=== PATIENT | male | born 1960 | race Caucasian/White ===

== ENCOUNTER → 2020-01-03 11:16 | Outpatient (BNVA) | payer BC, SELFPAY | PROVIDERS: PCP Preventive Medicine Preventive Medicine/Occupational Environmental Medicine; Visit Provider Internal Medicine | DX: M19.90 Unspecified osteoarthritis, unspecified site (principal); Z11.59 Encounter for screening for other viral diseases; Z11.1 Encounter for screening for respiratory tuberculosis; M77.40 Metatarsalgia, unspecified foot; L40.9 Psoriasis, unspecified; M32.9 Systemic lupus erythematosus, unspecified; D86.9 Sarcoidosis, unspecified | CPT/HCPCS: 80053; 82550; 82728; 82955; 84403; 84443; 85025; 85651; 86431; 86480; 86704; 86803; 87340; 99204 ==

== ENCOUNTER 2020-01-14 13:03 | Outpatient (CLI) | payer BC, SELFPAY ==
--- NOTE | 2020-01-14 13:17 | XR_ITS ---
WS: [id number] RIGHT FOOT: 2 VIEW(S) TECHNIQUE: AP and lateral. HISTORY: M25.50 - Pain in unspecified joint COMPARISON: None available. No acute fracture or dislocation. Normal tarsal/metatarsal alignment.. Minimal narrowing of the first metatarsophalangeal joint. No soft tissue edema. Moderate-sized calcaneal spur measures 8 mm. Enthesopathy at the Achilles tendo n. XR/XR foot RT 2V [id number] IMPRESSION: Minimal first metatarsophalangeal joint narrowing.
--- NOTE | 2020-01-14 13:17 | XR_ITS ---
WS: [id number] SACROILIAC JOINTS TECHNIQUE: AP and oblique imaging is submitted. HISTORY: L40.9 - Psoriasis, unspecified COMPARISON: None available. Moderate narrowing of the SI joints. There may be partial fusion across the SI joints. Findings are s ymmetric bilaterally. No soft tissue abnormality. XR/XR sacroiliac jts m 3V [id number] IMPRESSION: Bilateral sacroiliitis with partial fusion across the SI joints. Consider psori atic and reactive arthritic changes.
--- NOTE | 2020-01-14 13:17 | XR_ITS ---
WS: [id number] RIGHT HAND: 2 VIEW(S) TECHNIQUE: PA and lateral. HISTORY: M25.50 - Pain in unspecified joint COMPARISON: 10/10/2016 Diffuse interphalangeal joint space narrowing involving the proximal and distal joints. Hypertrophic osteophytes and soft tissue edema. There is a additional narrowing of the metacarpal phalangeal joint s. Erosive changes are noted especially involving the second and third metacarpal heads. All these fi ndings have progressed since the prior study. There is slight overhanging hooklike osteophytes at the metacarpal heads. Prior avulsion fracture from the ulnar styloid. XR/XR hand RT 2V [id number] IMPRESSION: 1. Interphalangeal joint space narrowing from osteoarthritis most likely. No e rosive changes at the IP joints. Most of productive bone formation. 2. Additional degenerative changes with progression at the metacarpal phalange al joints. Erosive changes and productive changes. Consider hemochromatosis and CPPD.
--- NOTE | 2020-01-14 13:17 | XR_ITS ---
WS: [id number] LEFT KNEE: 3 VIEW(S) TECHNIQUE: AP, oblique(s) and lateral. HISTORY: M25.50 - Pain in unspecified joint COMPARISON: None available. No fracture or dislocation. Moderate tricompartment osteoarthritis. Joint space narrowing and marginal osteophytes. No joint effusion. No soft tissue abnormality. XR/XR knee LT 3V* [id number] IMPRESSION: Moderate tricompartment osteoarthritis.
--- NOTE | 2020-01-14 13:17 | XR_ITS ---
WS: [id number] LEFT HAND: 2 VIEW(S) TECHNIQUE: PA and lateral. HISTORY: M25.50 - Pain in unspecified joint COMPARISON: 10/10/2016 Continued progression productive osteophytes and joint space narrowing at the IP joints. There is als o soft tissue nodularity at the IP joints. No erosions or productive changes. Additional narrowing of the metacarpal phalangeal joints, most significant at the second and third rodolfo int spaces. There are a few erosions and slight overhanging osteophytes. XR/XR hand LT 2V [id number] IMPRESSION: 1. Above changes may be due to pulmonary arthritis which has progressed since the prior study. 2. Osteoarthritis at the IP joints. No productive changes to suggest psoriatic arthritis. 3. Changes at the metacarpal phalangeal joints may be due to hemachromatosis o r CPPD.
--- NOTE | 2020-01-14 13:17 | XR_ITS ---
WS: [id number] LATERAL CERVICAL SPINE: 3 view. Lateral radiographs are performed in upright neutral, flexion and extension to the patient's toleranc e. HISTORY: M25.50 - Pain in unspecified joint COMPARISON: None available. Very slight anterolisthesis of C3 on less than 2 mm. Anterior bridging osteophyte between C4 and C5. There are small hypertrophic osteophytes at C3 also. No fractures. During flexion mild anterior insta bility of C3 up to 3 mm. XR/XR cervical spine fl/ex [id number] IMPRESSION: 1. Mild C3 instability during flexion. 2. Small anterior hypertrophic bridging osteophytes.
--- NOTE | 2020-01-14 13:17 | XR_ITS ---
WS: [id number] RIGHT KNEE: 3 VIEW(S) TECHNIQUE: AP, oblique(s) and lateral. HISTORY: M25.50 - Pain in unspecified joint COMPARISON: None available. No fracture or dislocation. Moderate to severe narrowing of the medial compartment. Mild narrowing of the lateral patellofemoral compartments. Hypertrophic osteophytes along the joint lines. No fracture. No joint effusion. No soft tissue abnormality. XR/XR knee RT 3V* [id number] IMPRESSION: 1. Moderate to severe medial compartment osteoarthritis. 2. Although osteoarthritis lateral and patellofemoral joint spaces.
--- NOTE | 2020-01-14 13:17 | XR_ITS ---
WS: [id number] LEFT FOOT: 2 VIEW(S) TECHNIQUE: AP and lateral. HISTORY: M25.50 - Pain in unspecified joint COMPARISON: None available. No acute fracture or dislocation. Very mild narrowing of the first metatarsophalangeal joint. Normal tarsal/metatarsal alignment. No soft tissue abnormality or bone destruction. Small calcaneal spur. XR/XR foot LT 2V [id number] IMPRESSION: Minimal first MTP joint arthritis. Small calcaneal spur.
== END 2020-01-14 13:04 | disposition home or self-care (01) ==
LOC: RADWPI 13:07
PROVIDERS: PCP Preventive Medicine Preventive Medicine/Occupational Environmental Medicine; Visit Provider Internal Medicine
DX: M79.671 Pain in right foot (principal); M79.642 Pain in left hand; M79.641 Pain in right hand; L40.9 Psoriasis, unspecified; M53.2X2 Spinal instabilities, cervical region; M25.78 Osteophyte, vertebrae; M46.1 Sacroiliitis, not elsewhere classified; M17.0 Bilateral primary osteoarthritis of knee; M19.042 Primary osteoarthritis, left hand; M19.041 Primary osteoarthritis, right hand; M77.32 Calcaneal spur, left foot
CPT/HCPCS: 72040; 72202; 73120; 73562; 73620

== ENCOUNTER → 2020-01-29 10:46 | Outpatient (BNVA) | payer BC, SELFPAY | PROVIDERS: PCP Preventive Medicine Preventive Medicine/Occupational Environmental Medicine; Visit Provider Internal Medicine Rheumatology | DX: M19.90 Unspecified osteoarthritis, unspecified site (principal); R79.89 Other specified abnormal findings of blood chemistry; Z79.899 Other long term (current) drug therapy | CPT/HCPCS: 36415 ==

== ENCOUNTER 2020-01-29 11:18 | Outpatient (CLI) | payer BC, SELFPAY ==
--- NOTE | 2020-01-29 11:26 | XR_ITS ---
WS: [id number] Lumbar spine, 3 views, 01/29/2020 Clinical Data: M53.3 - Sacrococcygeal disorders, not elsewhere classified Comparison: None. Findings: No compression fractures or subluxation is seen. No disc space narrowing is seen. The transverse proc esses and SI joints are normal. There is osteoarthritic spurring of all the lumbar vertebral bodies. There are surgical clips through out the abdomen. There is a large amount of fecal material in the colon. XR/XR lumbar spine 2-3V* [id number] Impression: Osteoarthritis of all the lumbar vertebral bodies.
== END 2020-01-29 11:19 | disposition home or self-care (01) ==
LOC: RADWPI 11:21
PROVIDERS: PCP Preventive Medicine Preventive Medicine/Occupational Environmental Medicine; Visit Provider Internal Medicine
DX: M53.3 Sacrococcygeal disorders, not elsewhere classified (principal); M47.816 Spondylosis without myelopathy or radiculopathy, lumbar region
CPT/HCPCS: 72100; 82306; 82310; 82728; 83540; 83735; 83970; 84100; 86812

== ENCOUNTER → 2020-03-05 12:40 | Outpatient (BNVA) | payer BC, SELFPAY | PROVIDERS: PCP Preventive Medicine Preventive Medicine/Occupational Environmental Medicine; Referring Provider Internal Medicine; Visit Provider Anesthesiology | DX: G89.29 Other chronic pain (principal); M53.2X2 Spinal instabilities, cervical region; M54.9 Dorsalgia, unspecified; Z79.1 Long term (current) use of non-steroidal anti-inflammatories (NSAID); Z79.891 Long term (current) use of opiate analgesic | CPT/HCPCS: 99204; 99205 ==

== ENCOUNTER 2020-03-24 12:05 | Outpatient (CLI) | payer BC, SELFPAY ==
--- NOTE | 2020-03-24 16:00 | MR_ITS ---
WS: [id number] MRI CERVICAL SPINE NONCONTRAST TECHNIQUE: Sagittal T1, T2 and STIR imaging. Axial T2, gradient, and fiesta imaging. CLINICAL INFORMATION: M53.2X2 - Spinal instabilities, cervical region COMPARISON: None. FINDINGS: Straightening of the normal cervical lordosis. Mild disc bulging worse at C3-C4 and C4-C5. Cord signa l is normal. C2-C3: Normal. C3-C4: Mild disc bulging and osteophytic ridging. Small central protrusion with mild central canal st enosis. Slight contact of the cervical cord. Mild bilateral bony foraminal narrowing. Mild facet arth ropathy. C4-C5: Disc osteophyte complex eccentric to the left. Mild central canal stenosis. Severe left bony f oraminal narrowing. Advanced left facet arthropathy with mild facet edema. C5-C6: Tiny central disc protrusion. Slight effacement of ventral thecal sac. Mild left and no signif icant right foraminal narrowing. Mild facet arthropathy. C6-C7: Osteophytic ridging. Moderate left and no significant right foraminal narrowing. Mild facet ar thropathy. Spinal canal is patent. C7-T1: Mild to moderate left and no significant right foraminal narrowing. Spinal canal is patent. Visualized brain stem structures: Normal. Prevertebral soft tissues: Normal. MR/MR cervical spin wo con* [id number] IMPRESSION: 1. Straightening of the normal cervical lordosis. Cord signal is normal. 2. Mild central canal stenosis C3-C4 and C4-C5 with mild central disc osteophy te protrusions. 3. Severe bony foraminal narrowing left C4-C5 with advanced left facet arthrop athy with a small amount of edema. 4. Mild to moderate bony foraminal narrowing left C5-C6, left C6-C7, and left C7-T1.
== END 2020-03-24 12:06 | disposition home or self-care (01) ==
LOC: RADSHAW 12:07
PROVIDERS: PCP Preventive Medicine Preventive Medicine/Occupational Environmental Medicine; Visit Provider Orthopaedic Surgery
DX: M53.2X2 Spinal instabilities, cervical region (principal); M47.812 Spondylosis without myelopathy or radiculopathy, cervical region; R60.0 Localized edema; M48.02 Spinal stenosis, cervical region
CPT/HCPCS: 72141

== ENCOUNTER → 2020-04-14 09:58 | Outpatient (BNVA) | payer BC, SELFPAY | PROVIDERS: PCP Preventive Medicine Preventive Medicine/Occupational Environmental Medicine; Visit Provider Orthopaedic Surgery | DX: G89.29 Other chronic pain (principal); M54.2 Cervicalgia; M54.5 Low back pain; M19.90 Unspecified osteoarthritis, unspecified site; M25.50 Pain in unspecified joint; M53.3 Sacrococcygeal disorders, not elsewhere classified; M53.2X2 Spinal instabilities, cervical region; Z79.891 Long term (current) use of opiate analgesic | CPT/HCPCS: 72050; 99213 ==

== ENCOUNTER → 2022-12-06 11:15 | Outpatient (BNVA) | payer BC, SELFPAY | PROVIDERS: PCP Preventive Medicine Preventive Medicine/Occupational Environmental Medicine; Visit Provider Internal Medicine Rheumatology | DX: Z79.899 Other long term (current) drug therapy (principal); M19.90 Unspecified osteoarthritis, unspecified site; Z11.59 Encounter for screening for other viral diseases; M45.6 Ankylosing spondylitis lumbar region; Z11.1 Encounter for screening for respiratory tuberculosis; M19.041 Primary osteoarthritis, right hand; M19.071 Primary osteoarthritis, right ankle and foot | CPT/HCPCS: 72100; 73130; 73630; 80076; 82306; 82565; 83520; 85025; 85651; 86140; 86200; 86431; 86480; 86704; 86803; 86812; 87340 ==

== ENCOUNTER → 2023-04-11 11:18 | Outpatient (BNVA) | payer BC, SELFPAY | PROVIDERS: PCP Family Medicine; Referring Provider Family Medicine; Visit Provider Student in an Organized Health Care Education/Training Program | DX: M17.0 Bilateral primary osteoarthritis of knee | CPT/HCPCS: 73560; 73565 ==

== ENCOUNTER → 2023-04-27 12:10 | Outpatient (BNVA) | payer BC, SELFPAY | PROVIDERS: PCP Family Medicine; Referring Provider Internal Medicine Cardiovascular Disease; Visit Provider Internal Medicine Cardiovascular Disease | DX: R06.02 Shortness of breath (principal); I49.9 Cardiac arrhythmia, unspecified; R53.83 Other fatigue | CPT/HCPCS: 36415; 80048; 83880 ==

== ENCOUNTER 2023-05-05 09:28 | Outpatient (CLI) | payer BC, SELFPAY ==
--- NOTE | 2023-05-05 | ECG_ITS ---
[facility] Test Date: 2023-05-05 Pat Name: Fredy Valdez Department: Room: Gender: Male Spot Sprayer: Stephany VelazcoLori : 1960 Requested By: Nasir Mckeon Order Number: [id number] Gwendolyn MD: Nasir Mckeon M.D. Interpretive Statements NAME OF STUDY: EXERCISE SESTAMIBI STRESS TEST INDICATION: Chest tightness, Fatigue, KOENIG, Pre stress patient rhythm intermittent Quadrigemeny/Bigeminy, these were non-perfusing PVCs as assessed with comparison palpation of radial pulse PROCEDURE: The baseline electrocardiogram showed normal sinus rhythm with frequent PVCs in the form of bigeminy. At the baseline, the patient's blood pressure was 141/95 mm Hg with a heart rate of 86. The patient exercised for 4 minutes and 8 seconds on a standard Wood protocol. Patient attained a maximum heart rate of 141 beats per minute(88% of the maximum predicted heart rate) with a blood pressure at the peak exercise of 200/87 mm Hg. The EKG at the peak exercise revealed less frequent PVCs. During exercise, patient was found to have episodes of ventricular couplets and triplets. Sestamibi was injected 1 minute prior to the peak exercise During the recovery phase, there were no new changes. The EKG returned to the baseline PVCs in the form of bigeminy Blood pressure at the end of the recovery phase was 165/93 mm Hg with a heart rate of 80 beats per minute. CONCLUSION: 1. No significant ischemic EKG changes with the treadmill exercise 2. Slight worsening of the baseline ventricular arrhythmia during the exercise 3. Impaired exercise tolerance, attained a maximum of 7.0 METs 4. Sestamibi/Sestamibi perfusion results pending; see separate report. Electronically Signed On 05-07-2023 20:50:35 CDT by Nasir Mckeon M.D. [email or web address]
[2023-05-05 09:51] VITALS: BMI 33.2
--- NOTE | 2023-05-05 09:55 | NMCV_ITS ---
NM ben perf SPECT r/s* [id number] Fredy Valdez Age: 62 Gender: M : 1960 Exam Date: 05/05/2023 09:55 Ordering Phys: Nasir Mckeon MD ([email or web address]) Technologist: RAMY Alicea Exam Location: [facility] Indications: CORONARY ANGIOPLASTY STATUS STRESS TEST [facility] IMAGE PROTOCOL Rest/Stress 1 Exercise Day Radiopharmaceutical Dose (mCi) Administration Site Administered by Rest: Tc-99m 10.9 IV RAMY [place] Sestamibi Stress:Tc-99m 33.0 IV RAMY [place] Sestamialiyah Rest: 05-May-2023 60 Discovery 630 Stress: 05-May-2023 15 Discovery 630 Radiopharmaceutical was injected at 85 % maximum heart rate. Images obtained in supine and prone position. SPECT RESULTS Technical Quality: Excellent Raw Data Analysis: Normal Image Corrections: No attenuation or motion correction applied Summed Stress Score: 6 Summed Rest Score: 5 Summed Difference Score: 3 PERFUSION FINDINGS Small area of minimal to moderately decreased tracer uptake was noted involving all the apical segments excluding the apical inferior with some subtle areas of reversibility FUNCTIONAL RESULTS (calculated via Gated SPECT) Stress Image LV EF (%): 42 Stress EDV (mL):159 TID: 1.12 Stress ESV (mL):92 FUNCTIONAL FINDINGS: Segmental wall motion analysis revealed diffuse hypokinesia of left ventricle IMPRESSIONS 1. Myocardial perfusion imaging revealing small area of minimal to moderately decreased tracer uptake involving the apical segments with some subtle areas of reversibility suggesting myocardial scarring in the distribution of the distal segments of the left anterior descending artery and circumflex artery with subtle areas of lyndsey-infarction ischemia. 2. Diminished LV ejection fraction of 42%. 3. Segmental wall motion analysis revealed diffuse hypokinesia of the left ventricle. 4. Mildly dilated LV cavity with end-systolic volume of 92 mL. No similar previous studies are available for comparison Dr Nasir Mckeon MD FAC (Electronically Signed) Final Date: 05 May 2023 15:57 S
[2023-05-05 11:40] VITALS: BP 165/93; PULSE 86
--- NOTE | 2023-05-05 11:43 | PC.NURSE ---
Stress test Pre stress test pt rhythm was intermittent between Quadrigeminy and Bigeminy. PVC's were non-perfusing upon assessment of radial pulse. Pt met target HR on exercise mibi. Complained of shortness of breath and mild chest tightness. Chest tightness resolved during recovery phase.
--- NOTE | 2023-05-05 14:30 | USCV_ITS ---
José Miguel Fredy Age: 62 Gender: M : 1960 Exam Date: 05/05/2023 09:59 Ordering Phys: Nasir Mckeon MD ([email or web address]) Technologist: [place] [facility] [place]ication: VENTRICULAR ARRHYTHMIA BP: 138 / 90 HR: 54 Rhythm: Sinus Technical Quality: Adequate MEASUREMENTS (Male / Female) Normal Values 2D ECHO LV Diastolic Diameter PLAX 5.8 cm 4.2 - 5.9 / 3.9 - 5.3 cm IVS Diastolic Thickness 1.1 cm 0.6 - 1.0 / 0.6 - 0.9 cm IVS Systolic Thickness 1.3 cm LVPW Diastolic Thickness 1.7 cm 0.6 - 1.0 / 0.6 - 0.9 cm LVPW Systolic Thickness 2.5 cm LVOT Diameter 2.0 cm LV Ejection Fraction 2D Teich 44.3 % LV Ejection Fraction MOD 2C 44.8 % LV Ejection Fraction 2C AL 46.1 % LA Diameter 3.8 cm RA Systolic Volume 4C AL 41.7 ml RA Systolic Volume 4C MOD 40.6 ml Aorta at Sinotubular Diameter 2.7 cm IVC Diameter 1.7 cm M-MODE LA Ao Ratio MM 1.2 AV Cusp Separation MM 1.8 cm DOPPLER AV Peak Velocity 111.0 cm/s LVOT Peak Velocity 82.0 cm/s AV Area Cont Eq vti 2.8 cm squared AV Area Cont Eq pk 2.3 cm squared MV Peak Velocity 104.0 cm/s MV Area PHT 3.4 cm squared Mitral E to A Ratio 0.9 TR Peak Velocity 198.0 cm/s TR Peak Gradient 15.7 mmHg TR Mean Velocity 156.0 cm/s TR Mean Gradient 10.3 mmHg TR Velocity Time Integral 67.9 cm TV Peak E Velocity 54.0 cm/s Right Atrial Pressure 3.0 mmHg Pulmonary Artery Systolic Pressu 18.7 mmHg PV Peak Velocity 91.0 cm/s FINDINGS Left Ventricle Mild diffuse hypokinesia of the left ventricule with ejection fraction of 44%. Mildly dilated LV cavity. Right Ventricle Normal right ventricular size and systolic function. Right Atrium Right atrium, upper limit of normal size Left Atrium Normal left atrial size. Mitral Valve Mild mitral valve regurgitation. Aortic Valve No gross abnormalities noted Tricuspid Valve No gross abnormalities noted Pulmonic Valve Mild pulmonary valve regurgitation. Pericardium No pericardial effusion. Aorta Normal aortic annulus size. IVC Normal inferior vena cava. CONCLUSIONS Mild diffuse hypokinesia of the left ventricule with ejection fraction of 44%. Mildly dilated LV cavity. Right atrium, upper limit of normal size. Mild mitral valve regurgitation. Mild pulmonary valve regurgitation. There is no pericardial effusion. There are no intracardiac masses. No similar previous studies are available for comparison Dr Nasir Mckeon MD [facility] (Electronically Signed) Final Date: 10 May 2023 17:32 S
== END 2023-05-05 09:29 | disposition home or self-care (01) ==
PROVIDERS: PCP Family Medicine; Visit Provider Internal Medicine Cardiovascular Disease
DX: R06.09 Other forms of dyspnea (principal); Z98.61 Coronary angioplasty status
CPT/HCPCS: 36415; 78452; 93017; 93306; A9500

== ENCOUNTER 2023-05-23 09:25 | Outpatient (CLI) | payer BC, SELFPAY ==
[2023-05-23 10:47] LABS: Basophils # 0.1 10^3/uL (0.0-0.1); Eosinophils # 0.5 10^3/uL (0.0-0.8); Eosinophils % 6.4 %; Hematocrit 45.6 % (37-53); Lymphocytes # 2.4 10^3/uL (0.8-4.8); Lymphocytes % 28.8 %; Mean Corpuscular HGB Conc 32.5 g/dL (30-55); Mean Corpuscular Hemoglobin 30.8 pg (27-33); Mean Corpuscular Volume 94.8 fl (82-101); Mean Platelet Volume 10.7 fL (7.4-10.4); Monocytes % 12.3 %; Neutrophils # 4.17 10^3/uL (1.8-7.7); Neutrophils % 50.8 %; Nucleated Red Blood Cells % 0 %; Platelet Count 264 10^3/cmm (157-399); Red Blood Count 4.81 10^6/uL (3.85-5.65); Red Cell Distribution Width 12.3 % (12.1-15.1); White Blood Count 8.22 10^3/uL (3.29-11.43)
[2023-05-23 11:03] LABS: INR 0.98 (0.8-1.2)
[2023-05-23 11:20] LABS: Anion Gap 12.4 (5-19); Blood Urea Nitrogen 21 mg/dL (8-23); Calcium 9.1 mg/dL (8.5-10.5); Carbon Dioxide 23 mmol/L (22-29); Chloride 108 mmol/L (98-107); Glucose 112 mg/dL (65-115); NT Pro B Type Natriuretic Pept 290 pg/mL (0-125); Osmolality Calculated 292 mOsm/kg (285-295); Potassium 4.4 mmol/L (3.5-5.1); Sodium 139 mmol/L (136-145)
== END 2023-05-23 09:26 | disposition home or self-care (01) ==
PROVIDERS: PCP Family Medicine; Visit Provider Internal Medicine Cardiovascular Disease
DX: R06.02 Shortness of breath (principal); I48.91 Unspecified atrial fibrillation; I25.118 Atherosclerotic heart disease of native coronary artery with other forms of angina pectoris; Z79.01 Long term (current) use of anticoagulants
CPT/HCPCS: 36415; 80048; 83880; 85025; 85610; 86850; 86900

== ENCOUNTER 2023-05-25 05:44 | Outpatient (CLI) | payer BC, SELFPAY ==
[2023-05-25] VITALS (19 sets, daily range): BP systolic 107–150; BP diastolic 74–99; PULSE 51–74; RESP 10–22; TEMP 36.6–36.8; O2SAT 94–97; BMI 34.2
--- NOTE | 2023-05-25 06:00 | XACV_ITS ---
Exam Room: 2 Ht: 175 cm Wt: 105 kg BSA: 2.30 m2 Gender: Male : 1960 Any Known Allergies: Sulfa Exam Priority: Routine Procedure(s): Procedure Description: Diagnostic procedure Procedure Description: PCI procedure Procedure Description: Left Heart Catheterization Procedure Description: Left ventriculography Procedure Description: Coronary IVUS Procedure Description: Drug Eluting Coronary Stent Procedure Description: PTCA Procedure Description: Miscellaneous Procedure Description: ACT Procedure Description: Coronary Angiography Procedure Description: Pressure Wire Mike DRUMMOND; Diagnostic Cath Status: Elective Diagnostic Findings * The left main is a medium caliber short vessel with no significant stenotic lesions. * The left anterior descending artery is a medium caliber vessel which appears to wraparound the LV apex minimally. The proximal and mid LAD was found to have moderate diffuse disease. The proximal segment was found to have a bumpy lumpy lesions of around 50 to 60%. The mid LAD was found to have bumpy lumpy lesions of 30 to 40%. * The intermedius artery is a high obtuse marginal branch of medium to large caliber. The proximal segment of the artery was found to have around 50 to 60% segmental lesion. The distal artery was found to have minimal intimal irregularities. * The left circumflex artery was found to have * minimal disease proximally. * The second obtuse marginal branch was * found to be a small to medium caliber vessel with * moderate to severe diffuse disease proximally. There was a napkin ring type lesion of around 85% in the segment. No other significant stenotic lesions. * The right coronary artery is a medium caliber codominant vessel which was found to have mild diffuse disease of 20 to 30% in the midsegment. No other significant external lesions. PCI Status: Elective PCI Indication: Other Interventional Findings * Second Obtuse Marginal Branch Segment: 70% stenosis treated with a AB TREK 2.25X12 RX BALLOON, and MDT R DONOVAN 2.25X22 MICHAEL. 0% residual stenosis, REUBEN: 3 flow. * Procedure detail: We engaged left main artery with XB 3.5 guide catheter. IV heparin was administered to maintain anticoagulation. After normalization, IFR wire was advanced into OM1, IFR value of 0.96 was obtained that was nonsignificant. We then proceeded with IFR of proximal LAD. Spot IFR of 0.90 was obtained however on pullback it was significant at 0.89 with step up at proximal LAD. Given significant iFR value on pull back and LV dysfunction, we proceeded with PCI of proximal LAD and placed a 4.0 x 30 mm resolute Douglas drug-eluting stent. IVUS was performed and we postdilated stent with 4.0 x 12 mm NC balloon at high pressure. We then proceeded with PCI of OM 2. Run-through wire was used to cross the stenosis. 2.25 x 12 mm semicompliant balloon was used to predilate the stenosis. We then placed 2.25 x 22 mm resolute Donovan drug-eluting stent. At this time final angiogram was performed that showed excellent stent expansion, no residual stenosis and REUBEN-3 flow. Guide guidewire and guide catheter were removed. Patient left the Manager Gyn in a stable condition.. * Proximal Left Anterior Descendin% stenosis treated with a Resolute Donovan 4.0x30, and MDT TOÑITO EUPHORA RX 4.64I26DM BALLOON. 0% residual stenosis, REUBEN: 3 flow. Conclusions 1. 62-year-old white male, presenting with complaints of chest pains/shortness of breath and palpitation. He was found to have frequent ventricular arrhythmias on the monitor. His myocardial perfusion imaging revealed a small area of reversible defect in distribution of the left anterior descending artery/circumflex artery. His LV ejection fraction was around 40% by echocardiogram. In view of the patient's risk factors and abnormal objective findings, in order to further evaluate the coronary status, a cardiac catheterization was recommended. Patient underwent left heart catheterization with left and right coronary angiogram and LV angiogram today. The findings are as follows. 2. Short left main with no significant lesions. Moderate diffuse irregular bumpy lumpy lesions in the proximal LAD. Moderate disease in the proximal intermedius artery. High-grade segmental stenosis in the second obtuse marginal branch. Mild disease in the other vessels. LV ejection fraction 35 to 40%. LVEDP of 30 mmHg. 3. I reviewed and discussed the cardiac catheterization data with the Dr. Yadav. 4. Based on the 5. abovefindings, it was thought to be appropriate to consider PCI of the second obtuse marginal lesions and do an IFR in the proximal LAD and intermedius artery lesions. Dr. Yadav concurred with this plan and took over further management this patient at this point. 6. The IFR in the proximal area was found to be Significant. Patient underwent PCI of the proximal LAD lesion and the second OM lesions. Further details, please refer to the report by Dr. Yadav. 7. Severe proximal LAD stenosis confirmed with iFR on pull back with significant step up in the proximal vessel. Successful revascularization with 1 stent. 8. Severe OM 2 stenosis s/p successful revascularization with 1 stent. 9. Proximal Left Anterior Descending was treated with a Stent, and Balloon. 10. First Obtuse Marginal Branch Segment was treated with a Balloon, and Drug Eluting Stent. Recommendations * Dual antiplatelet therapy with aspirin and Plavix for atleast 1 year. * High intensity statin therapy. * Outpatient cardiology follow up in 2 weeks. Interventional RX Recommendation: PCI w/o planned CABG Diagnostic RX Recommendation: PCI w/o planned CABG Anticoagulation: Heparin Ventriculography Ejection Fraction: 36.0 % LV EDP: 30 mmHg Left Ventriculography Findings: * LV gram was performed the SAN position. There is mild to moderate diffuse hypokinesia of the left ventricle. Ejection fraction was around 35 to 40%. The LVEDP was 30 mmHg. There was no significant mitral valve prolapse or mitral regurgitation. Pressures Phase:Rest AO : 102 / 70 ( 82 ) @ 8:26:00 AM 113 / 78 ( 94 ) @ 8:29:00 AM 164 / 85 ( 116 ) @ 8:38:00 AM 156 / 69 ( 108 ) @ 8:39:00 AM 146 / 86 ( 110 ) @ 8:49:00 AM 146 / 99 ( 120 ) @ 9:11:00 AM 141 / 102 ( 121 ) @ 9:13:00 AM 163 / 104 ( 130 ) @ 9:15:00 AM 159 / 106 ( 129 ) @ 9:20:00 AM LV : 152 / 21 / 30 @ 8:37:00 AM 150 / 23 / 35 @ 8:38:00 AM 143 / 14 / 29 @ 8:38:00 AM Valves Phase:DefaultPhase AV : 0.0 @ 8:42:26 AM 0.0 @ 8:42:26 AM AV Mean Gradient: 0.0 @ 8:42:26 AM 0.0 @ 8:42:26 AM Clinical Evaluation EBL: 5mL-10mL Procedural Details Pre-Procedure Time Out. Identified patient by full name and date of as verbalized by the patient/guarantor. Does the consent match the physician's order: Yes. Accurate & Complete Informed Consent: Yes. Inpatient/Outpatient History & Physical on Chart: Yes. If H&P is completed, is and addenduem needed: No; If yes, is the addendum complete: N/A. Visualize and Verify Site with Patient/Guarantor: N/A. Relevant Radiology Images available: Yes. Pre-op teaching completed and patient verbalized understanding. The risks, benefits, and alternatives of sedation and/or procedure were discussed by physician. The patient agrees to continue. Procedure started. Current Diagnosis : Chest Pain. [facility] Clinical Fraility Score: 3: Managing Well. Manager G[facility] Indications: Cardiomyopathy/ventricular arrythmia. Chest Pain Symptom Assessment: Typical Angina Symptoms. Cardiovascular Instability: No. Correct patient, site and procedure confirmed by cath team. PERRLA. Strong, equal hand drums teacher bilaterally. Lungs clear x 5 lobes. IV Site on Arrival: 20 gauge in the left hand. IV Fluids: 0.9% NaCl at KVO. 0 mL infused prior to blood and plasma laboratory assistant. Pre Procedural Pulses: bilateral dorsalis pedis was 3+. Pre Procedural Pulses: bilateral posterior tibial was 3+. Pre Procedural Pulses: bilateral radial was 3+. Oxygen started at 2liters/min via nasal canula. right groin was prepped with chloroprep then draped in the usual sterile fashion. Physician notified. Baseline sample Acquired. HR: 54 BPM. Patient's family in CPRU. Dr. Mckeon will update at the completion of the procedure. Equipment: 6F - Radial. Cardiac Cath Pack. ACIST Manifold Kit Model BT 2000. Heparinized Saline (2 units/mL), 1000 mL bag. Physician arrived. Physician scrubbed in. Immediate Pre-Procedure Time Out. Correct Patient: Yes; Correct Procedure: Yes; Correct Site: Yes; Correct Patient Position: Yes; Correct Supplies: Yes; Dried Flammable Prep: Yes; Blood Products Available: N/A;. Lidocaine 1% infiltrated to the right radial. Arterial access obtained. A 5 iraqi Seferino catheter in over wire. Multiple views taken of left coronary artery. Catheter redirected to the RCA. Multiple views taken of right coronary artery. Catheter removed over the exchange wire. Dr. Yadav arrived to review films. A 5 iraqi Angled Pig catheter in over wire. EDP Sample taken: LV 152/21,30; HR: 68 BPM; SpO2: 99%. LV gram performed in SAN @ 10 mL/second for a total of 30 mL. EDP Sample taken: LV 150/23,35; HR: 65 BPM; SpO2: 98%. Pullback taken: LV 143/14,29; AO 164/85(116); Mean: 0mmHg, Peak to Peak: 0mmHg, SEP: 4sec/min; HR: 65 BPM; SpO2: 98%. Catheter removed over the exchange wire. Dr. Mckeon scrubbed out. Side port of sheath attached to Normal Saline flush at KVO to maintain patency. Dr. Yadav scrubbed in. 6 iraqi XB 3 guide catheter was inserted over the wire. IFR guidewire was advanced through the guide catheter to lesion in the OM. IFR Results: 0.96. Wire redirected to the LAD. IFR Results: 0.90. ACT drawn. Results 390 seconds. Therapeutic limits - pre-heparin administration 90-150 seconds and monitoring heparin during a vascular procedure >250 seconds. Stent inserted to lesion in the prox LAD. Inflation Number : 1 A Resolute Donovan 4.0x30 -Lot Number# _[id number] EXP: 12/30/2023 was prepped and advanced across the Prox LAD. The stent was deployed at 12 CARO for 0:30 seconds. Stent balloon out over wire. IVUS catheter inserted OTW and advanced to the proximal LAD. IVUS measurements obtained. IVUS catheter removed OTW. Inflation number : 2 A MDT NC EUPHORA RX [id number] BALLOON was prepped and advanced across the Prox LAD , then inflated to 14 CARO for 0:11 seconds. Inflation number: 4 The MDT NC EUPHORA RX 4.90Y89QL BALLOON was reinflated across the Prox LAD, to 12 CARO for 0:06 seconds. Inflation number: 5 The MDT NC EUPHORA RX 4.57C28LL BALLOON was reinflated across the Prox LAD, to 16 CARO for 0:12 seconds. Balloon out. Runthrough guidewire was advanced through the guide catheter to lesion in the OM. IFR wire out. Inflation number : 1 A AB TREK 2.25X12 RX BALLOON was prepped and advanced across the 1st Ob Glenna , then inflated to 8 CARO for 0:11 seconds. Inflation number: 2 The AB TREK 2.25X12 RX BALLOON was reinflated across the 1st Ob Glenna, to 8 CARO for 0:09 seconds. Balloon out. Inflation Number : 3 A MDT R DONOVAN 2.25X22 MICHAEL -Lot Number# _[id number] EXP: 12/25/2023 was prepped and advanced across the 1st Ob Glenna. The stent was deployed at 12 CARO for 0:21 seconds. Stent balloon out over wire. Wire out. Results checked. ACT drawn. Results 363 seconds. Therapeutic limits - pre-heparin administration 90-150 seconds and monitoring heparin during a vascular procedure >250 seconds. Guide catheter out. A TR Band was successful obtaining hemostatsis at the Right Radial artery insertion site. Post Procedure: Pulses reassessed and unchanged. PERRLA. Strong, equal hand drums teacher bilaterally. No VTE prophylaxis required. Medication's Wasted: Lidocaine 1% = 17 mL. Medication's Wasted: Other = Fentanyl 75 mcg. Medication's Wasted: Nitro = 49.8 mg. Total IV fluids: 330 mL. Vital chart was stopped. Complications: None. Estimated blood loss: 5mL-10mL. Responsiveness - Normal response to verbal stimuli; alert and oriented, PERRLA. Airway - Unaffected, no intervention required; spontaneous ventilation. Circulation: W/N/L, pulses unchanged. Nausea/Vomiting: No. Procedure completed. Patient transferred by wheelchair to CPRU. Access Site Site: Right Radial artery Sheath Size: 6 Fr Hemostasis Method: TR Band Hemostasis Success: Successful Procedure Medications Start: 7:12 AM Stop: 7:12 AM Medication: Zofran (ondansetron) Amount: 4 mg Route: I.V. Start: 7:15 AM Stop: 7:15 AM Medication: Versed 1 mg and Fentanyl 25 mcg Amount: 1 Route: I.V. Start: 7:22 AM Stop: 7:22 AM Medication: 0.9% Saline Amount: 250 ml Route: I.V. bolus Start: 7:22 AM Stop: 7:22 AM Medication: Nitrogylcerin Amount: 200 mcg Route: I.A. Start: 7:22 AM Stop: 7:22 AM Medication: Verapamil Amount: 5 mg Route: I.A. Start: 7:26 AM Stop: 7:26 AM Medication: Heparin Amount: 5000 units Route: I.V. Start: 7:35 AM Stop: 7:35 AM Medication: Fentanyl Amount: 25 mcg Route: I.V. Start: 7:35 AM Stop: 7:35 AM Medication: Versed Amount: 1 mg Route: I.V. Start: 7:42 AM Stop: 7:42 AM Medication: Fentanyl Amount: 25 mcg Route: I.V. Start: 7:50 AM Stop: 7:50 AM Medication: Heparin Amount: 5000 units Route: I.V. Start: 7:51 AM Stop: 7:51 AM Medication: Versed Amount: 1 mg Route: I.V. Start: 8:14 AM Stop: 8:14 AM Medication: Fentanyl Amount: 25 mcg Route: I.V. Start: 8:15 AM Stop: 8:15 AM Medication: Versed Amount: 1 mg Route: I.V. Start: 8:25 AM Stop: 8:25 AM Medication: Fentanyl Amount: 25 mcg Route: I.V. I, the attending physician, have reviewed and verified all procedure medications. Yes, all medications given per verbal order History/Risk Factors Hypertension: No Dyslipidemia: No Peripheral Arterial Disease (PAD): No Myocardial Infarction (WA): No Obesity: No Renal Disease: No Tobacco Use: Never Prior Interventions PCI: No CABG: No Valve Surgery: No Report Signatures Interventional Workflow Finalized by Obdulio Yadav MD on 05/28/2023 09:41 PM Diagnostic Workflow Finalized by Dr Nasir Mckeon MD [facility] on 05/25/2023 10:12 PM
[2023-05-25] MEDS: diphenhydrAMINE 50 mg Capsule PO (06:12)
--- NOTE | 2023-05-25 07:08 | W.PM.OPSUD ---
Surgery/Procedure H&P Update DATE OF PROCEDURE: May 25, 2023 DATE H&P PERFORMED: 04/27/23 H&P UPDATE INFORMATION: I have reviewed H&P completed within last 30 days, I have examined patient prior to procedure and No changes to prior documentation PREOP DIAGNOSIS: ASHD/ cardiomyopathy PRIMARY INDICATION FOR PROCEDURE: Ventricular arrhythmia/cardiomyopathy/abnormal stress test PLANNED PROCEDURE: Operation Date: 05/25/23 07:00 Proposed Procedures p Cardiac Catheterization(Left) - Nasir Mckeon MD PATIENT REASSESSED PRIOR TO SEDATION, WITH NO CHANGE NOTED: Yes PHYSICAL EXAM: alert, oriented x 3, clear to auscultation bilaterally and regular rate & rhythm AIRWAY EVAL/ANESTHESIA PLAN: normal airway, see other exam findings, ASA II, ASA III, Monitored Anesthesia, Local Anesthesia, Risks, benefits & alternatives of sedation and/or procedure discussed and Patient agrees to continue as planned
--- NOTE | 2023-05-25 09:35 | PC.NURSE ---
Physician Notified Dr. Mckeon notified for reports of heartburn. Patient asked if his could give him a pepcid from her purse. Received telephone orders for 40mg PO Protonix daily and obtain EKG.
[2023-05-25] MEDS: pantoprazole DR 40 mg Tablet PO (09:46)
--- NOTE | 2023-05-25 09:46 | ECG_ITS ---
[facility] Test Date: 2023-05-25 Pat Name: Fredy Valdez Department: Room: Gender: Male [employer]visor [employer]: : 1960 Requested By: Nasir Mckeon Order Number: [id number] Gwendolyn MD: Obdulio Yadav M.D. Measurements Intervals [place] Rate: 55 P: 54 NV: 183 QRS: 45 QRSD: 97 T: 57 QT: 444 QTc: 426 Interpretive Statements SINUS BRADYCARDIA No previous ECG available for comparison Electronically Signed On 05-26-2023 17:12:29 CDT by Obdulio Yadav M.D. [id number]
--- NOTE | 2023-05-25 12:30 | PC.NURSE ---
TR band removal note 1040- 2 ml air removed from right radial TR band. Site asymptomatic. No signs of bleeding or hematoma noted. 1100- 2 ml air removed from right radial TR band. Site asymptomatic. No signs of bleeding or hematoma noted. 1112- 2 ml air removed from right radial TR band. Site asymptomatic. No signs of bleeding or hematoma noted. 1130- 2 ml air removed from right radial TR band. Site asymptomatic. No signs of bleeding or hematoma noted. 1140- 2 ml air removed from right radial TR band. Site asymptomatic. No signs of bleeding or hematoma noted. 1200- 2 ml air removed from right radial TR band. Site asymptomatic. No signs of bleeding or hematoma noted. 1225- 3 ml air removed from right radial TR band. Site asymptomatic. No signs of bleeding or hematoma noted. 1230- 2 ml air removed from right radial TR band. Site asymptomatic. No signs of bleeding or hematoma noted. 1230- band deflated. No signs of bleeding or hematoma noted. TR band removed. Clean bandaid applied over site.
--- NOTE | 2023-05-25 13:04 | PC.NURSE ---
Patient arrived from [facility] via wheelchair. Patient is at bedside. Patient is alert and oriented. Dressing in place on right wrist. Patient is aware of activity restrictions. Vital signs are WNL no bleeding or hematoma present in surgical site area, nurse will continue to monitor.
[2023-05-25] MEDS: acetaminophen 325 mg Tablet 650 MG PO (14:07)
[2023-05-25] MEDS: CELEcoxib 200 mg Capsule PO (17:54)
[2023-05-25] MEDS: metoprolol tartrate 25 mg Tablet PO (17:54)
[2023-05-26] VITALS: BP 125/72; PULSE 72; RESP 17; TEMP 36.9; O2SAT 95
[2023-05-26 04:00] VITALS: BP 110/63; PULSE 69; RESP 18; TEMP 36.6; O2SAT 95
[2023-05-26 08:00] VITALS: BP 142/86; PULSE 75; TEMP 36.8; O2SAT 96
--- NOTE | 2023-05-26 08:57 | P.PN_ITS ---
Subjective Subjective: The patient underwent left heart catheterization with left and right coronary angiogram and LV angiogram yesterday. He was found to have a hemodynamically significant stenosis in the proximal LAD and a high-grade lesion in these obtuse marginal artery. He underwent PCI of these lesions by Dr. Yadav. Following the procedure, the patient did well so far. He did not have any recurrence of chest pain. His shortness of breath is improving. His LV ejection fraction was around 36%. Medications: Medication Review Details: Current Medications Acetaminophen (Acetaminophen 325 Mg Tablet) 650 mg PO Q6H PRN PRN Reason: MILD PAIN Last Admin: 05/25/23 14:07 Dose: 650 mg Aspirin (Aspirin 81 Mg Ec Tablet) 81 mg PO DAILY [facility] Celecoxib (Celecoxib 200 Mg Capsule) 200 mg PO BID [facility] Last Admin: 05/25/23 17:54 Dose: 200 mg Clopidogrel Bisulfate (Clopidogrel 75 Mg Tablet) 75 mg PO DAILY [facility] Isosorbide Mononitrate (Isosorbide Mononitrate Er 30 Mg Tablet) 30 mg PO DAILY [facility] Last Admin: 05/25/23 10:40 Dose: Not Given Latanoprost (Latanoprost 0.005% Op Soln 2.5 Ml Btl) 1 drop EYE-BOTH DAILY [facility] Metoprolol Tartrate (Metoprolol Tartrate 25 Mg Tablet) 25 mg PO BID [facility] Last Admin: 05/25/23 17:54 Dose: 25 mg Nitroglycerin (Nitroglycerin 0.4 Mg Sublingual Tablet) 0.4 mg SUBLINGUAL Q5M PRN PRN Reason: chest pain Non-Formulary Medication (Leflunomide) 20 mg PO DAILY [facility] Last Admin: 05/25/23 10:40 Dose: Not Given Pantoprazole Sodium (Pantoprazole Dr 40 Mg Tablet) 40 mg PO DAILY [facility] Last Admin: 05/25/23 09:46 Dose: 40 mg Tramadol HCl (Tramadol 50 Mg Tablet) 50 mg PO Q6H PRN PRN Reason: Pain Vitals/I&O/Wt Last Vital Signs Temp 98.3 F 05/26/23 08:00 Pulse 75 05/26/23 08:00 Resp 18 05/26/23 04:00 BP 142/86 05/26/23 08:00 Pulse Ox 96 05/26/23 08:00 O2 Del Method Room Air 05/26/23 04:00 05/25/23 05/26/23 05/26/23 22:59 06:59 14:59 Intake Total 360 / 720 780 / 1500 Balance 360 / 720 780 / 1500 Weight last 48 hrs Weight 223 lb 11.2 oz Weight 232 lb Weight 232 lb Physical Exam Narrative: GENERAL: The patient is alert and oriented times three. Not in any acute distress. HEENT: No significant pallor, icterus or lymphadenopathy.Oral cavity: There are no mucous membrane lesions. NECK: Trachea appears to be central. No masses noted. No JVD or thyromegaly appreciated. RESPIRATORY: Chest is symmetrical. No intercostals muscle retraction or any accessory muscle activation. There is no chest wall tenderness. Breath sounds are heard bilaterally. No rales or rhonchi heard. No evidence of any consolidation. BREASTS: Deferred. HEART: The heart sounds are normal. No S3 or S4. No significant murmurs. No pericardial rub ABDOMEN: No vessel pulsations or distention. No tenderness. No organomegaly appreciated. Bowel sounds are normally heard. : Deferred. RECTAL: Deferred. LYMPHATIC: No lymphadenopathy noted in the neck. EXTREMITIES: No edema or cyanosis. No clubbing. The right radial artery puncture site appears to have no hematoma or bleeding. Good distal pulses. MUSCULOSKELETAL: No acute joint deformities or swelling SKIN: There are no significant rashes or ecchymosis NEUROPSYCHIATRIC: The patient is alert and oriented x3. Appears to be in a good mood. No tremors or rigidity noted. A&P Assessment and plan (1) Ventricular arrhythmia: He seems to have less PVCs on monitor. (2) Cardiomyopathy: The LV ejection fraction was found to be around 36% by the LV angiogram. I may go ahead and start him on losartan 25 mg p.o. daily and bridged towards Entresto as an outpatient. Also may start him on spironolactone 25 mg p.o. daily. Will consider Jardiance and Entresto as an outpatient. Qualifiers: Cardiomyopathy type: unspecified Qualified Code(s): I42.9 - Cardiomyopathy, unspecified (3) Congestive heart failure: Spironolactone 25 mg p.o. daily. Will do a BMP and BNP in 1 week, when he comes back to the clinic for follow-up. Further medication changes will be made at that time. Qualifiers: Heart failure type: systolic Heart failure chronicity: chronic Qualified Code(s): I50.22 - Chronic systolic (congestive) heart failure (4) Atherosclerotic heart disease: Patient was found to have hemodynamically significant stenosis in the proximal LAD. Moderate stenosis in the proximal segment of the intermedius artery. High-grade lesion in the obtuse marginal artery which was intervened. Mild disease in the other vessels. Importance of lifestyle modification was discussed with the patient in detail which is understood well. Qualifiers: Coronary Disease-Associated Artery/Lesion type: circle artery [place] vs. transplanted heart: circle heart Associated angina: with other forms of angina Qualified Code(s): I25.118 - Atherosclerotic heart disease of circle coronary artery with other forms of angina pectoris Plan BMP today. If the patient continues to remain stable, will be discharged home. [facility] 1 week Patient will be seen by me in 2 months Patient is advised to continue the medications as mentioned above. The importance of compliance to diet, medications and exercise were discussed. In the event of the patient developing chest pain ,unusual palpitations or any new symptoms, is advised to contact me or come to the hospital. Attestations Medical Necessity Statement*: Discharge home today Coding Level of Care Code 99981 Diagnoses Ventricular arrhythmia I49.9 Cardiomyopathy, unspecified type I42.9 Cardiomyopathy type: unspecified Chronic systolic congestive heart failure I50.22 Heart failure type: systolic Heart failure chronicity: chronic Atherosclerosis of circle coronary artery of circle heart with other form of angina pectoris I25.118 Coronary Disease-Associated Artery/Lesion type: circle artery [place] vs. transplanted heart: circle heart Associated angina: with other forms of angina
[2023-05-26] MEDS: metoprolol tartrate 25 mg Tablet PO (08:59)
[2023-05-26] MEDS: pantoprazole DR 40 mg Tablet PO (09:00)
[2023-05-26] MEDS: clopidogrel 75 mg Tablet PO (09:00)
[2023-05-26] MEDS: CELEcoxib 200 mg Capsule PO (09:00)
[2023-05-26] MEDS: isosorbide mononitrate ER 30 mg Tablet PO (09:00)
[2023-05-26] MEDS: aspirin 81 mg EC Tablet PO (09:00)
[2023-05-26 09:30] VITALS: BP 139/63
[2023-05-26] MEDS: losartan 50 mg Tablet 25 MG PO (09:30)
[2023-05-26] MEDS: spironolactone 25 mg Tablet PO (09:31)
[2023-05-26 09:38] LABS: Anion Gap 12.8 (5-19); Blood Urea Nitrogen 12 mg/dL (8-23); Calcium 8.5 mg/dL (8.5-10.5); Carbon Dioxide 23 mmol/L (22-29); Chloride 104 mmol/L (98-107); Creatinine Clr Calc Pharmacy 115.2883; Glomerular Filtration Rate 98.6 mL/min (90-130); Glucose 176 mg/dL (65-115); Osmolality Calculated 286 mOsm/kg (285-295); Potassium 3.8 mmol/L (3.5-5.1); Sodium 136 mmol/L (136-145)
--- NOTE | 2023-05-26 12:00 | PC.NURSE ---
Patient's was discharged with via a private car.
== END 2023-05-26 11:51 | disposition home or self-care (01) ==
LOC: CCL 05:48 → CSU 13:02
PROVIDERS: Internal Medicine; PCP Family Medicine; Visit Provider Internal Medicine Cardiovascular Disease
DX: I25.118 Atherosclerotic heart disease of native coronary artery with other forms of angina pectoris (principal); I49.9 Cardiac arrhythmia, unspecified; I42.9 Cardiomyopathy, unspecified; I50.22 Chronic systolic (congestive) heart failure; Z79.82 Long term (current) use of aspirin; Z79.891 Long term (current) use of opiate analgesic; Z79.1 Long term (current) use of non-steroidal anti-inflammatories (NSAID); Z87.891 Personal history of nicotine dependence
CPT/HCPCS: 36415; 80048; 85347; 92978; 93005; 93458; 93571; 93572; 96374; 96375; 99152; 99153; C1725; C1753; C1769; C1874; C1887; C1894; C9600; C9601; J1644; J2250; J2405; J3010; J3490; J7030; Q0163; Q9967

== ENCOUNTER → 2023-06-08 13:48 | Outpatient (BNVA) | payer BC, SELFPAY | PROVIDERS: PCP Family Medicine; Visit Provider Nurse Practitioner Family | DX: I25.118 Atherosclerotic heart disease of native coronary artery with other forms of angina pectoris (principal); I49.9 Cardiac arrhythmia, unspecified; I50.22 Chronic systolic (congestive) heart failure; R00.2 Palpitations; I10 Essential (primary) hypertension; M48.10 Ankylosing hyperostosis [Forestier], site unspecified; Z79.899 Other long term (current) drug therapy | CPT/HCPCS: 36415; 80048; 80076; 85025; 86140 ==

== ENCOUNTER 2023-06-15 12:36 | Outpatient (CLI) | payer BC, SELFPAY ==
--- NOTE | 2023-06-15 13:00 | USCV_ITS ---
Valdez Fredy Age: 62 Gender: M : 1960 Exam Date: 06/15/2023 13:15 Ordering Phys: Lamar Damon Technologist: Exam Location: [facility] [place] Indication: post cath ef BP: 145 / 85 HR: Rhythm: Sinus Technical Quality: Adequate MEASUREMENTS (Male / Female) Normal Values 2D ECHO LV Diastolic Diameter PLAX 5.3 cm 4.2 - 5.9 / 3.9 - 5.3 cm IVS Diastolic Thickness 1.1 cm 0.6 - 1.0 / 0.6 - 0.9 cm IVS Systolic Thickness 1.6 cm LVPW Diastolic Thickness 1.4 cm 0.6 - 1.0 / 0.6 - 0.9 cm LVPW Systolic Thickness 1.8 cm LVOT Diameter 2.0 cm LV Ejection Fraction 2D Teich 49.2 % LV Ejection Fraction MOD 2C 72.5 % LV Ejection Fraction 2C AL 73.4 % LA Diameter 2.8 cm RA Systolic Volume 4C AL 49.5 ml RA Systolic Volume 4C MOD 46.0 ml LA Sys Volume AL 54.5 cm cubed LA Sys Volume Index AL 24.0 cm cubed/m squared Aorta at Sinotubular Diameter 3.1 cm IVC Diameter 1.6 cm M-MODE LA Ao Ratio MM 1.4 AV Cusp Separation MM 2.4 cm FINDINGS Left Ventricle Right Ventricle Right Atrium Left Atrium Mitral Valve Aortic Valve Tricuspid Valve Pulmonic Valve Pericardium Aorta IVC CONCLUSIONS This is a limited echocardiogram performed to assess LV systolic function. LV systolic function is normal with EF of 55 to 60%. No regional wall motion abnormalities are seen. Compared to prior echocardiogram from 05/03/2023, LV systolic function has improved and is normal now Obdulio Yadav MD (Electronically Signed) Final Date: 25 Jun 2023 12:53 S
== END 2023-06-15 12:37 | disposition home or self-care (01) ==
LOC: RAD 12:37
PROVIDERS: PCP Family Medicine; Visit Provider Nurse Practitioner Family
DX: I25.118 Atherosclerotic heart disease of native coronary artery with other forms of angina pectoris (principal)
CPT/HCPCS: 93308

== ENCOUNTER → 2024-05-21 15:09 | Outpatient (BNVA) | payer BC, SELFPAY | PROVIDERS: PCP Family Medicine; Visit Provider Internal Medicine Cardiovascular Disease | DX: R06.02 Shortness of breath (principal) | CPT/HCPCS: 80048; 83880 ==

== ENCOUNTER 2024-06-17 06:43 | Outpatient (CLI) | payer BC, SELFPAY ==
[2024-06-17 07:15] VITALS: BMI 33.0
--- NOTE | 2024-06-17 07:20 | ECG_ITS ---
[place] Test Date: 2024-06-17 Pat Name: Fredy Valdez Department: Room: Gender: Male [employer]: : 1960 Requested By: Nasir Mckeon Order Number: [id number] Gwendolyn MD: Nasir Mckeon M.D. Interpretive Statements Lung unchanged pre/post procedure; Intraprocedure shortess of breath; Symptoms resoled by discharge PROCEDURE: At the baseline, the EKG revealed sinus bradycardia with a normal ST Ts. Possible old septal WI. The baseline heart was 56 bpm with a blood pressue of 138/81 mm of Hg Lexiscan was infused over a period of 20 seconds. A total of 0.4 milligrams of Lexiscan was infused. The stress phase was continued for a total of 5 minutes. Heart rate at the end of the stress phase was 74 bpm with a blood pressure 116/75 mm of Hg. The EKG at the peak infusion revealed no significant changes. Sestamibi was injected 20 seconds after the Lexiscan infusion. Heart rate at the end of the recovery phase was 70 bpm with a blood pressure of 124/73 mm of Hg. CONCLUSION: 1. No significant EKG changes with the LexiScan infusion 2. No LexiScan induced chest pain or cardiac arrhythmia 3. Normal blood pressure and heart rate response 4. Sestamibi/sestamibi perfusion scan pending; see separate report. Electronically Signed On 06-24-2024 14:53:14 CDT by Nasir Mckeon M.D. [email or web address]
--- NOTE | 2024-06-17 07:20 | NMCV_ITS ---
NM ben perf SPECT r/s* [id number] Fredy Valdez Age: 63 Gender: M : 1960 Exam Date: 06/17/2024 08:00 Ordering Phys: Nasir Mckeon MD ([email or web address]) Technologist: RAMY Martinez Exam Location: [facility] Indications: cp STRESS TEST [facility] IMAGE PROTOCOL Rest/Stress 1 Lexiscan Day Radiopharmaceutical Dose (mCi) Administration Site Administered by Rest: Tc-99m 10.9 IV Key Red, DATA REPORT ANALYST Sestamibi Stress:Tc-99m 32.3 IV Key Red, DATA REPORT ANALYST Sestamibi Rest: 17-Jun-2024 60 Discovery 630 Stress: 17-Jun-2024 30 Discovery 630 0.4mg Lexiscan. Images obtained in supine and prone position. SPECT RESULTS Technical Quality: Good Raw Data Analysis: Normal Image Corrections: No attenuation or motion correction applied Summed Stress Score: 6 Summed Rest Score: 5 Summed Difference Score: 3 PERFUSION FINDINGS Myocardial perfusion imaging revealing patchy areas of slightly decreased tracer uptake involving the mid inferior, mid inferolateral, apical lateral, apical septal and LV apex. Some reversibility was noted in the mid inferior, apical lateral and the LV apex. However the supine imaging reveals no significant Perfusion normalities. FUNCTIONAL RESULTS (calculated via Gated SPECT) Stress Image LV EF (%): 52 Stress EDV (mL):133 TID: 1.25 Stress ESV (mL):64 FUNCTIONAL FINDINGS: Segmental wall motion analysis revealing no gross wall motion abnormalities. The transient ischemic dilatation ratio was relative elevated to 1.25 IMPRESSIONS 1. Myocardial perfusion imaging revealing patchy areas of slightly decreased persistent tracer uptake involving the inferolateral, inferior and apical segments. Subtle areas of reversibility was noted in the mid inferior and apical segments. 2. Normal LV ejection fraction of 52%. 3. LV wall motion analysis revealing no gross wall motion normalities. 4. Normal LV volume 5. The elevated transient ischemic dilatation ratio may suggest endocardial ischemia. However the prodding positive predictive value of this finding is low. Clinical correlation is recommended Dr Nasir Mckeon MD FACC (Electronically Signed) Final Date: 17 Jun 2024 13:42 S
[2024-06-17] MEDS: regadenoson 0.4 Mg/5 ml Syringe IVP (08:27)
[2024-06-17 08:44] VITALS: BP 136/74; PULSE 68
--- NOTE | 2024-06-17 11:15 | USCV_ITS ---
Fredy Valdez Age: 63 Gender: M : 1960 Exam Date: 06/17/2024 08:56 Ordering Phys: Nasir Mckeon MD ([email or web address]) Technologist: Exam Location: [facility] [place] Indication: cp BP: / HR: Rhythm: Sinus Technical Quality: Adequate MEASUREMENTS (Male / Female) Normal Values 2D ECHO LV Diastolic Diameter PLAX 5.2 cm 4.2 - 5.9 / 3.9 - 5.3 cm IVS Diastolic Thickness 1.1 cm 0.6 - 1.0 / 0.6 - 0.9 cm IVS Systolic Thickness 1.6 cm LVPW Diastolic Thickness 1.1 cm 0.6 - 1.0 / 0.6 - 0.9 cm LVPW Systolic Thickness 2.2 cm LVOT Diameter 2.1 cm LV Ejection Fraction 2D Teich 62.2 % LV Ejection Fraction MOD 4C 69.0 % LV Ejection Fraction MOD 2C 57.8 % LV Ejection Fraction 2C AL 56.8 % LA Diameter 3.1 cm RA Systolic Volume 4C AL 46.1 ml RA Systolic Volume 4C MOD 43.0 ml Aorta at Sinotubular Diameter 3.1 cm M-MODE LA Ao Ratio MM 1.1 AV Cusp Separation MM 2.1 cm FINDINGS Left Ventricle Normal LV size ejection fraction of 58%. No gross wall motion normalities. Right Ventricle Normal RV size and ejection fraction. Right Atrium Normal right atrial size. Left Atrium Normal left atrial size. Mitral Valve Structurally normal mitral valve. Aortic Valve Structurally normal trileaflet aortic valve. Tricuspid Valve Structurally normal tricuspid valve. Pulmonic Valve Pulmonic valve not well visualized. Pericardium No pericardial effusion. Aorta Normal aortic annulus size. IVC Normal inferior vena cava. CONCLUSIONS .Normal LV size ejection fraction of 58%. No gross wall motion normalities. No myocardial chamber sizes. No gross valvular abnormalities There is no pericardial effusion. There are no intracardiac masses. Compared to the study from , there may not be a significant change Dr Nasir Mckeon MD FACC (Electronically Signed) Final Date: 19 Jun 2024 23:00 S
== END 2024-06-17 06:44 | disposition home or self-care (01) ==
PROVIDERS: PCP Family Medicine; Visit Provider Internal Medicine Cardiovascular Disease
DX: R06.02 Shortness of breath (principal); I42.9 Cardiomyopathy, unspecified; R93.1 Abnormal findings on diagnostic imaging of heart and coronary circulation
CPT/HCPCS: 36415; 78452; 93017; 93308; 96374; A9500; J2785